=== PATIENT | female | born 1985 | race Two or more races ===

== ENCOUNTER → 2017-05-01 | Day surgery (SDC) | payer OTHER ==
[~2017-05-01] VITALS: Ht 170.2 cm; Wt 55.8 kg
[~2017-05-01] MED LIST: DOXYCYCLINE HYCLATE 100 MG TAB As Ordered ONE; DOXYCYCLINE HYCLATE 100 MG TAB PO ONE; KETOROLAC 60 MG/2 ML VIAL (J1885) As Ordered ONE; LIDOCAINE 2% INJ 100 MG/5 ML SDV (FOR ANES.) As Ordered ONE; LR 1,000 ML IV SCH; METH10TA PO; MIDAZOLAM INJ 2 MG/2 ML VIAL (J2250) As Ordered ONE; ONDANSETRON 4 MG TAB (S0181) PO PRN; ONDANSETRON 4MG/2ML VIAL (J2405) As Ordered ONE; OXYC1TAB23 PO; PERCOCET 5MG/325MG TAB As Ordered ONE; PRENTAB7 PO; PROPOFOL 200 MG/20 ML VIAL As Ordered ONE; SILVER NITRATE APPLICATOR As Ordered ONE; fentaNYL 100 MCG/2 ML INJECTION (J3010) As Ordered ONE
[2017-05-01 17:13] LABS: MEAN CORPUSCULAR HEMOGLOBIN 30.6 pg (27.0-33.0); MEAN CORPUSCULAR HGB CONC 33.9 g/dl (32.0-36.5); MEAN CORPUSCULAR VOLUME 90.2 fl (80.0-96.0); RED CELL DISTRIBUTION WIDTH 11.9 % (11.5-14.5); WHITE BLOOD COUNT 7.7 K/mm3 (4.0-10.0)
[2017-05-01] MEDS: PERCOCET 5MG/325MG TAB PO PRN ×2 (18:34→19:07)
[2017-05-01 19:35] VITALS: BP 118/71
--- NOTE | 2017-05-02 09:18 | RO ---
DATE OF PROCEDURE: 05/01/2017 PREPROCEDURE DIAGNOSIS: Missed , failed medical management POSTPROCEDURE DIAGNOSIS: Same as above. SURGEON: Daniel Carrera MD SPORTS AGENT: None ANESTHESIA: Ms. StephensonJESUS, IV Sedation INDICATION: The patient is a 31-year-old, 5, para 3-0-1-3 with a known spontaneous , who had previously failed medical management with Cytotec. Presents for surgical management via suction dilatation and curettage. DESCRIPTION OF PROCEDURE: The patient was extensively counseled on the risks, benefits, alternatives, indications with the patient and informed consent was obtained. The patient was taken to the operating room where IV sedation was obtained and found to be adequate without difficulty. She was then placed in high lithotomy position using Michael stirrups. Previously, examination under anesthesia had been performed in the clinic and notable for an 8 week sized, midline uterus. She was then prepped and draped in the normal sterile fashion. A time-out was performed. A sterile speculum was placed in the patient's vagina and the cervix was visualized. Single toothed tenaculum was used grasping the anterior lip of the cervix. The cervix was gently serially dilated to a size 20 Hanks dilator. An 8 mm curved suction catheter was then placed into the uterine cavity and gently advanced to the uterine fundus. The suction device was then activated to 60 mmHg. The catheter was rotated to clear the products of conception. Approximately six or seven passes were performed with a moderate to significant amount of tissue. A gentle sharp curettage was then performed until a gritty texture/uterine cry was noted. One final pass of the suction catheter was performed with minimal tissue and no bleeding. Tissue was sent to pathology for review. Single toothed tenaculum was removed from the anterior lip of the cervix. Tenaculum sites were noted to be hemostatic. All instruments were removed from the patient's vagina. A vaginal sweep demonstrated no retained objects. The patient tolerated the procedure well. Sponge, lap and needle counts were correct times two. The patient was taken to the postanesthesia care unit in stable condition. Prior to the case beginning, 100 mg of doxycycline orally times one was given and postoperative 200 mg by mouth doxycycline times one was also written for. Geraldine Carrera OB-CRUSHING MACHINE OPERATOR MTDD
== END | disposition home or self-care (01) ==
LOC: M SDC 16:41
PROVIDERS: ATTEND Student in an Organized Health Care Education/Training Program
DX: O02.1 Missed abortion (principal); E03.9 Hypothyroidism, unspecified; Z79.899 Other long term (current) drug therapy
CPT/HCPCS: 36415; 59820; 85027; 86850; 86900; 86901; 88305; J1885; J2250; J2405; J3010

== ENCOUNTER 2017-05-14 21:11 | Emergency (ER) | payer OTHER ==
[~2017-05-14] VITALS: Ht 154.9 cm; Wt 56.8 kg
[~2017-05-14 21:11] MED LIST changes: -DOXYCYCLINE HYCLATE 100 MG TAB As Ordered ONE; -DOXYCYCLINE HYCLATE 100 MG TAB PO ONE; -KETOROLAC 60 MG/2 ML VIAL (J1885) As Ordered ONE; -LIDOCAINE 2% INJ 100 MG/5 ML SDV (FOR ANES.) As Ordered ONE; -LR 1,000 ML IV SCH; -MIDAZOLAM INJ 2 MG/2 ML VIAL (J2250) As Ordered ONE; -ONDANSETRON 4 MG TAB (S0181) PO PRN; -ONDANSETRON 4MG/2ML VIAL (J2405) As Ordered ONE; -PERCOCET 5MG/325MG TAB As Ordered ONE; -PROPOFOL 200 MG/20 ML VIAL As Ordered ONE; -SILVER NITRATE APPLICATOR As Ordered ONE; -fentaNYL 100 MCG/2 ML INJECTION (J3010) As Ordered ONE
[2017-05-14 21:12] VITALS: BP 120/77
[2017-05-14] MEDS ORDERED: NS 1,000 ML IV ONE (21:45)
[2017-05-14] MEDS ORDERED: MORPHINE 2 MG/ML 1ML SYRINGE IV ONE (21:45)
[2017-05-14] MEDS ORDERED: ONDANSETRON 4 MG ORAL DISINTEGRATING TAB (S0181) PO ONE (21:45)
[2017-05-14 22:24] LABS: BASO % 0.6 % (0.0-1.0); EOS # 0.3 K/mm3 (0.0-0.50); EOS % 3.5 % (0.0-3.0); LARGE UNSTAINED CELL # 0.1 K/mm3 (0.0-0.4); LARGE UNSTAINED CELL % 1.6 % (0.0-4.0); LYMPH # 3.2 K/mm3 (1.5-4.5); LYMPH % 40.6 % (24.0-44.0); MEAN CORPUSCULAR HEMOGLOBIN 30.5 pg (27.0-33.0); MEAN CORPUSCULAR HGB CONC 33.8 g/dl (32.0-36.5); MEAN CORPUSCULAR VOLUME 90.5 fl (80.0-96.0); MONO # 0.4 K/mm3 (0.0-0.8); MONO % 5.2 % (0.0-5.0); NEUTROPHILS # 3.6 K/mm3 (1.8-7.7); NEUTROPHILS % 48.5 % (36.0-66.0); PLATELET COUNT, AUTOMATED 369 k/mm3 (150-450); RED CELL DISTRIBUTION WIDTH 12.5 % (11.5-14.5); WHITE BLOOD COUNT 7.5 K/mm3 (4.0-10.0)
[2017-05-14 22:39] LABS: ANION GAP 7 MEQ/L (8-16); BLOOD UREA NITROGEN 13 MG/DL (7-18); CARBON DIOXIDE LEVEL 25 MEQ/L (21-32); CHLORIDE LEVEL 108 MEQ/L (98-107); CREATININE FOR GFR 0.41 MG/DL (0.55-1.02); GLOMERULAR FILTRATION RATE > 60.0 (>60); GLUCOSE, FASTING 93 MG/DL (70-105); HCG, SERUM QUANTITATIVE 30 MIU/ML; POTASSIUM SERUM 3.9 MEQ/L (3.5-5.1); SODIUM LEVEL 140 MEQ/L (136-145)
[2017-05-14] MEDS ORDERED: MORPHINE 4 MG/ML 1ML SYRINGE IV ONE (23:15)
--- NOTE | 2017-05-15 00:20 | REPUSA ---
CLINICAL HISTORY: Pelvic pain. Vaginal bleeding. TECHNIQUE: Realtime sonographic images were obtained in multiple projections via TV approach. COMMENTS: The uterus is anteverted measuring 11.6x6.2x6.8 cm. The endometrial echo pattern is within normal quarles its measuring 5.1 mm. Nabothian cysts of the uterine cervix. There is no evidence of free fluid within the pelvic cul-de-sac. The right ovary measures 2.8x1.2x2 cm with a follicle measuring at 1 cm and the left ovary measures 3 x1.6x2.6 cm. Both ovaries are free of solid or cystic mass. A mild echogenic debris surrounding the l eft ovary. There is no evidence for abnormal vascularity. IMPRESSION: Heterogeneous uterus. Nabothian cysts of the uterine cervix. Echogenic debris surrounding the left ovary. Thank you for your kind referral of this patient.
--- NOTE | 2017-05-15 06:39 | ED PDOC ---
Post-Departure Follow-Up dr miranda - ft drum ob - and ft drum fp faxed formal report of pelvic us for fu Brad Garcia MD May 15, 2017 06:39
== END 2017-05-15 01:00 | disposition home or self-care (01) ==
LOC: M ED 21:11
DX: N93.8 Other specified abnormal uterine and vaginal bleeding (principal)

== ENCOUNTER → 2017-05-26 | Outpatient (REF) | payer OTHER | LOC: M SFHCLERA 10:22 | PROVIDERS: ATTEND Nurse Practitioner Family | DX: J02.9 Acute pharyngitis, unspecified (principal) ==

== ENCOUNTER 2018-05-03 12:00 | Day surgery (SDC) | payer OTHER ==
[2018-05-03] MEDS: ACETAMINOPHEN 650 MG SUPP As Ordered (17:35)
[2018-05-03] MEDS ORDERED: NS 1,000 ML IV ×2 (17:45→18:45)
[2018-05-03] MEDS ORDERED: fentaNYL 100 MCG/2 ML INJECTION (J3010) As Ordered (18:16)
[2018-05-03] MEDS ORDERED: MIDAZOLAM INJ 2 MG/2 ML VIAL (J2250) As Ordered (18:16)
[2018-05-03] MEDS ORDERED: PROPOFOL 200 MG/20 ML VIAL As Ordered (18:16)
[2018-05-03] MEDS ORDERED: dexameTHASONE 4 MG/ML 1ML VIAL (J1100) As Ordered (18:24)
[2018-05-03] MEDS ORDERED: METOCLOPRAMIDE INJ 10MG/2ML VIAL (J2765) As Ordered (18:24)
[2018-05-03] MEDS ORDERED: ONDANSETRON 4MG/2ML VIAL (J2405) As Ordered (18:24)
[2018-05-03 18:30] LABS: HEMATOCRIT 30.8 % (36.0-47.0); HEMOGLOBIN 10.8 g/dl (12.0-15.5); MEAN CORPUSCULAR HGB CONC 35.1 g/dl (32.0-36.5); MEAN CORPUSCULAR VOLUME 91.1 fl (80.0-96.0); PLATELET COUNT, AUTOMATED 254 10^3/uL (150-450); RED BLOOD COUNT 3.38 10^6/uL (4.00-5.40); RED CELL DISTRIBUTION WIDTH 11.9 % (11.5-14.5); WHITE BLOOD COUNT 5.6 10^3/uL (4.0-10.0)
[2018-05-03] MEDS: ACETAMINOPHEN 650 MG SUPP PR (18:38)
[2018-05-03] MEDS: ceFAZolin 1GM INJ (J0690 PER 500MG) As Ordered (18:40)
[2018-05-03] MEDS ORDERED: OXYTOCIN INJ 10 UNITS/ML VIAL (J2590) As Ordered ×2 (18:43→18:47)
[2018-05-03 18:50] LABS: ANION GAP 7 MEQ/L (8-16); BLOOD UREA NITROGEN 9 MG/DL (7-18); CALCIUM LEVEL 8.3 MG/DL (8.5-10.1); CARBON DIOXIDE LEVEL 25 MEQ/L (21-32); CHLORIDE LEVEL 108 MEQ/L (98-107); CREATININE FOR GFR 0.48 MG/DL (0.55-1.30); GLOMERULAR FILTRATION RATE > 60.0 (>60); GLUCOSE, FASTING 77 MG/DL (70-100); POTASSIUM SERUM 3.4 MEQ/L (3.5-5.1); SODIUM LEVEL 140 MEQ/L (136-145)
[2018-05-03] MEDS: LR 1,000 ML IV (19:03)
[2018-05-03] MEDS ORDERED: MEPERIDINE INJ 25 MG/ML VIAL (J2175) As Ordered (19:14)
[2018-05-03] MEDS ORDERED: PERCOCET 5MG/325MG TAB As Ordered (19:14)
[2018-05-03] MEDS: PERCOCET 5MG/325MG TAB PO (19:15)
[2018-05-03] MEDS: MEPERIDINE INJ 25 MG/ML VIAL (J2175) IV ×2 (19:15→19:20)
[2018-05-03] MEDS ORDERED: ONDANSETRON 4MG/2ML VIAL (J2405) IV (19:30)
[2018-05-03] MEDS ORDERED: METOCLOPRAMIDE INJ 10MG/2ML VIAL (J2765) IV (19:30)
[2018-05-03] MEDS ORDERED: fentaNYL 100 MCG/2 ML INJECTION (J3010) IV (19:30)
== END 2018-05-03 20:10 | disposition home or self-care (01) ==
LOC: M SDC 12:00
DX: O02.1 Missed abortion (principal); J45.909 Unspecified asthma, uncomplicated; E05.90 Thyrotoxicosis, unspecified without thyrotoxic crisis or storm
CPT/HCPCS: 59820

== ENCOUNTER 2018-09-07 20:50 | Emergency (ER) | payer OTHER ==
[2018-09-07] MEDS ORDERED: LIDOCAINE W/EPINEPHRINE 1% 20ML VIAL SC (21:45)
[2018-09-07] MEDS: ACETAMINOPHEN TAB 650MG DOSE (2X325MG) PO (21:45)
[2018-09-07] MEDS: LIDOCAINE 1% MDV 20ML VIAL SC (21:52)
== END 2018-09-07 23:31 | disposition home or self-care (01) ==
LOC: M ED 20:50
DX: O34.81 Maternal care for other abnormalities of pelvic organs, first trimester (principal); N75.0 Cyst of Bartholin's gland; O99.281 Endocrine, nutritional and metabolic diseases complicating pregnancy, first trimester; E05.90 Thyrotoxicosis, unspecified without thyrotoxic crisis or storm; O99.331 Smoking (tobacco) complicating pregnancy, first trimester; F17.210 Nicotine dependence, cigarettes, uncomplicated; Z79.899 Other long term (current) drug therapy; Z3A.10 10 weeks gestation of pregnancy
CPT/HCPCS: 56420